=== PATIENT | male | born 1975 | race Caucasian/White ===

== ENCOUNTER 2023-06-27 00:50 | Emergency (ER) | payer BC, OTHER, SELFPAY ==
[2023-06-27 00:58] VITALS: BP 176/117; PULSE 73; RESP 18; TEMP 36.2; O2SAT 97
--- NOTE | 2023-06-27 01:17 | ED.GENADULT ---
HPI - General Adult General Date Seen: 06/27/23 Chief complaint: Neck Injury/Pain Stated complaint: neck pain Time Seen by Provider: 06/27/23 01:03 Source: patient Mode of arrival: ambulatory Limitations: no limitations History of Present Illness HPI narrative: Patient is a 48-year-old male who presents for evaluation of neck and shoulder pain. He says it has been bothering him for about 8 months but over the past month it has been worse, prompting a visit to [facility] last . He said he had an MRI which did not show any acute findings, and he was prescribed Medrol Dosepak as well as Flexeril. He just started the was on Saturday. He says they did not tell him to continue any ibuprofen or Tylenol so he has not been taking that. He has pain from the base of his skull down into the right trapezius. He says he was told it was due to muscle spasm. He has not had fevers, radiating pain, weakness or numbness. He came in tonight because he did not want to miss work tomorrow by needing to go to the doctor. Also it is difficult to sleep because he can not get comfortable laying on that side which is the side he typically likes to sleep on. Related Data Allergies Allergy/AdvReac Type Severity Reaction Status Date / Time No Known Drug Allergies Allergy Verified 06/27/23 00:58 Review of Systems Status of ROS: Reports: 6 or more systems reviewed and unremarkable except as noted in History and below Exam Narrative: Exam Narrative: Vital signs as noted above. In general, an alert, nontoxic male. Overweight. Head: Normocephalic, atraumatic. Eyes: Pupils are equal reactive. Extraocular movements are full. Conjunctivae are normal. ENT: Mucous membranes are moist. Throat is normal. Neck: Supple without lymphadenopathy. Some diffuse muscle tenderness throughout the cervical muscles and the right trapezius. No masses, erythema, bruising. Neurologic: Patient is alert and oriented to person and place. Speech is fluent. Face is symmetric. Moves all extremities equally. Affect: Normal. Skin: Warm and dry. Well perfused. Const: Vital Signs, click to edit/add: Vital Signs - 24 hr 06/27/23 00:58 Temperature 97.2 F L Pulse Rate [Left P ulse Oximeter] 73 Respiratory Rate 18 Blood Pressure [Ri ght Upper Arm] 176/117 H Pulse Oximetry 97 Oxygen Delivery Me thod Room Air Documenting provider has reviewed patient's vital signs: yes Course Course Hospital Course: I talked with him about options. Certainly with 8 months of pain and then unclear cause I do not think narcotics are a good choice. I asked him if they discussed physical therapy, he said that he was told if things did not improve with the medications that he should follow up with them, I do think he should proceed with that. For now, I do not see any red flags suggesting he needs repeat imaging. I offered to give him some Ativan to try at bedtime, also recommended that he take Tylenol 1000 mg and ibuprofen 400 mg 3 times daily as I pointed out that nothing that he is on right now is technically for pain. I gave him a dose of ibuprofen and Tylenol here, a prescription for Ativan, p.r.n. at bedtime number 10 out of Inst[facility]. Return for worsening symptoms such as fevers, weakness, numbness. Vital Signs Vital signs: Initial Vital Signs Temperature 97.2 F L 06/27/23 00:58 Temperature Source Temporal Artery Scan 06/27/23 00:58 Pulse Rate 73 06/27/23 00:58 Pulse Rhythm Regular 06/27/23 00:58 Respiratory Rate 18 06/27/23 00:58 Blood Pressure 176/117 H 06/27/23 00:58 Blood Pressure Mean 136 H 06/27/23 00:58 Blood Pressure Position Sitting 06/27/23 00:58 Pulse Oximetry 97 06/27/23 00:58 Oxygen Delivery Method Room Air 06/27/23 00:58 Vital Signs Temperature 97.2 F L 06/27/23 00:58 Pulse Rate 73 06/27/23 00:58 Respiratory Rate 18 06/27/23 00:58 Blood Pressure 176/117 H 06/27/23 00:58 Pulse Oximetry 97 06/27/23 00:58 Oxygen Delivery Method Room Air 06/27/23 00:58 Temperature 97.2 F L 06/27/23 00:58 Pulse Rate 73 06/27/23 00:58 Respiratory Rate 18 06/27/23 00:58 Blood Pressure 176/117 H 06/27/23 00:58 Pulse Oximetry 97 06/27/23 00:58 Oxygen Delivery Method Room Air 06/27/23 00:58 Discharge Plan Discharge Clinical Impression: Muscle spasm Patient Disposition: Home, Self-Care Condition: Stable Instructions: Muscle Spasm (ED) Additional Instructions: Ibuprofen 400 mg plus Tylenol 1000 mg 3 times daily with food for the next up to 1 week or 2. Try lorazepam at night. Do not combine this with cyclobenzaprine. Do not operate heavy machinery when taking this medication. Finish Medrol Dosepak as prescribed. I would recommend follow-up with some a to discuss physical therapy. Your blood pressure is elevated here, this should be followed up with primary care for recheck. Stand Alone Forms: [facility] Info Instructions
[2023-06-27] MEDS: IBUPROFEN 200 MG TABLET 400 MG PO (01:21)
[2023-06-27] MEDS: ACETAMINOPHEN 500 MG TABLET 1000 MG PO (01:22)
== END 2023-06-27 01:47 | disposition home or self-care (01) ==
PROVIDERS: Emergency Provider Emergency Medicine
DX: M62.838 Other muscle spasm (principal)
CPT/HCPCS: 99283; 99284; A9270